=== PATIENT | female | born 1995 | race Caucasian/White ===

== ENCOUNTER → 2017-07-06 01:07 | Observation (INO) ==
[2017-07-05 22:31] LABS: Bilirubin,Urine Negative (Negative); Blood,Urine Negative (Negative); Clarity,Urine Turbid (Clear); Color,Urine Yellow (Yellow); Glucose,Urine (UA) Normal (Normal); Ketones,Urine Negative (Negative); Leukocyte Esterase,Urine Moderate (Negative); Nitrite,Urine Negative (Negative); Protein,Urine Negative (Neg-Trace); Specific Gravity,Urine 1.021 (1.010-1.025); Urobilinogen,Urine Normal (Normal)
[2017-07-05 22:39] LABS: Amorphous Sediment,Urine Moderate (Few); Bacteria,Urine Moderate per hpf (None-Few); Squamous Epithelial Cell,Urine Moderate per lpf (None-Few); WBC,Urine 0-3 per hpf (0-3)
--- NOTE | 2017-07-05 23:32 | OB/GYN History & Physical ---
Date of Encounter: 07/05/17 Time of Encounter: 23:25 Assessment and Plan (1) 27 weeks gestation of Current visit: Yes Status: Acute (2) labor Current visit: Yes Status: Acute Pt with uc's q 3-5 min on toco's, pt not really feeling most of them. SSE was negative for fern, pool or nitrazine. Qualifiers: labor trimester: second trimester Fetus number: single or unspecified fetus Qualified Code(s): O60.10X0 - labor with delivery, unspecified trimester, not applicable or unspecified History of Present Illness Chief complaint: contractions, pressure and possible LOF HPI: Ms. Keller is a 21 year old female female presents at 27w1d gestation with c/o 3 day h/o leaking small amt of fluid and now abd tightening about q 5 min and sharp stabbing pain in groind. + GFM. No VB. No UTI sx'x. She has been drinking alot of decaf. fluids. She had SI yest. Had ptl at about this far along with first preg. and had brethine x 1. She delivered 37 weeks last preg when induced for preeclampsia. Past Med Surg Social Fam HX - Past Medical History Source: patient, old records reviewed Medical history: GERD Psychiatric history: no psych history - Past Surgical History Surgical History: no surgical history - Social History Smoking Status: Never smoker Smokeless Tobacco Status: No Alcohol use: none Drug use: none - Family History Mother Adopted: No Family Member Ethnicity: Non- Living Status: Still Living Hx Family Cardiac Disorders: No Hx Family Respiratory Disorders: No Hx Family Cancer: No Hx Family GI Disorders: No Hx Family Endocrine Disorder: No Hx Family Neuromuscular Disorders: No Hx Family Neurologic Disorders: No Hx Family HEENT Disorders: No Hx Family Autoimmune Disorders: No Obstetrical History - Pregnancies : 2 Term: 1 Medications and Allergies Vits #90/Iron Fum/FA [ Formula Tablet] 1 each PO 07/05/17 [ History] 3 Allergy/AdvReac Type Severity Reaction Status Date / Time bee venom protein (honey bee) Allergy Swelling Verified 07/05/17 22:13 of Lip/Tongue/Throat Exam - Constitutional Constitutional: well developed, well nourished, no acute distress - HEENT HEENT: PERRL - Neck Neck exam: full ROM - Lungs Respiratory exam: CTAB - Cardiovascular Cardiovascular exam: RRR - Abdomen Abdomen: Present: gravid - Cervix Dilation: 0 Effacement: 20 Station: -2 - Uterus Uterus exam: Present: enlarged Results Abnormal lab results Urine Clarity Turbid (Clear) A 07/05/17 22:22 Ur Leukocyte Esterase Moderate (Negative) H 07/05/17 22:22 Ur Squamous Epith Cells Moderate per lpf (None-Few) H 07/05/17 22:22 Amorphous Sediment Moderate (Few) H 07/05/17 22:22 Urine Bacteria Moderate per hpf (None-Few) H 07/05/17 22:22 Ur Culture Indicated? YES (NO) A 07/05/17 22:22 All other labs normal. - VTE Reasons for not Prescribing Prophylaxis: Treatment not Indicated - Low risk for VTE
[2017-07-06 00:29] LABS: Candida DNA Not Detected (Not Detect); Gardnerella DNA Not Detected (Not Detect); Trichomonas DNA Not Detected (Not Detect)
[~2017-07-06 01:07] MED LIST: Terbutaline 1 MG/ML VIAL SQ ONE
== END | disposition home or self-care (01) ==
LOC: 1NENULAB
PROVIDERS: ADMIT Obstetrics & Gynecology; ATTEND Obstetrics & Gynecology

== ENCOUNTER → 2017-08-21 23:10 | Observation (INO) ==
[2017-08-21 22:18] LABS: Bilirubin,Urine Small (Negative); Blood,Urine Negative (Negative); Clarity,Urine Cloudy (Clear); Color,Urine Yellow (Yellow); Glucose,Urine (UA) Normal (Normal); Ketones,Urine Negative (Negative); Leukocyte Esterase,Urine Small (Negative); Nitrite,Urine Negative (Negative); PH,Urine 6.5 pH Units (5.0-8.0); Protein,Urine Trace mg/dL (Neg-Trace); Specific Gravity,Urine > 1.030 (1.010-1.025); Urobilinogen,Urine Normal (Normal)
[2017-08-21 22:20] LABS: Bacteria,Urine Many per hpf (None-Few); Squamous Epithelial Cell,Urine Many per lpf (None-Few)
[2017-08-21 22:25] LABS: Amphetamine Screen,Urine Negative ng/mL (Cutoff=1000); Barbiturate Screen,Urine Negative ng/mL (Cutoff=200); Benzodiazepines Screen,Urine Negative ng/mL (Cutoff=200); Cannabinoid Screen,Urine Negative ng/mL (Cutoff = 50); Cocaine Screen,Urine Negative ng/mL (Cutoff= 300); Opiate Screen,Urine Negative ng/mL (Cutoff=300); Phencyclidine Screen,Urine Negative ng/mL (Cutoff=25)
[2017-08-21 22:34] LABS: Hyaline Casts,Urine Few per lpf (None-Few)
[2017-08-21 22:35] LABS: RBC,Urine 0-3 per hpf (0-3)
--- NOTE | 2017-08-21 22:36 | Discharge Summary ---
Date of Encounter: 08/21/17 Time of Encounter: 22:36 - Discharge Diagnosis (1) 34 weeks gestation of Priority: Primary Status: Acute Comments: Admit for labor observation (2) Lower abdominal pain Priority: Secondary Status: Acute Comments: UA PO fluids encouraged (3) NST (non-stress test) reactive on surveillance Priority: Secondary Status: Acute Comments: baseline 135 bpm moderate variability +15x15 accels no decels noted. - Discharge Medications Home Medications: Vits #90/Iron Fum/FA [ Formula Tablet] 1 each PO DAILY [History] Allergies/Adverse Reactions: 3 Allergy/AdvReac Type Severity Reaction Status Date / Time bee venom protein (honey bee) Allergy Swelling Verified 08/21/17 22:19 of Lip/Tongue/Throat Data Procedures and tests throughout hospitalization: Laboratory Tests 08/21/17 08/21/17 22:00 22:00 Urine Color Yellow Urine Clarity Cloudy A Urine pH 6.5 Ur Specific [place] > 1.030 H Urine Protein Trace Urine Glucose (UA) Normal Urine Ketones Negative Urine Blood Negative Urine Nitrite Negative Urine Bilirubin Small H Urine Urobilinogen Normal Ur Leukocyte Esterase Small H Urine Opiates Screen Negative Ur Barbiturates Screen Negative Ur Phencyclidine Scrn Negative Ur Amphetamines Screen Negative U Benzodiazepines Scrn Negative Urine Cocaine Screen Negative U Marijuana (THC) Screen Negative Labs on day of discharge: Labs from last 24 hours 08/21/17 08/21/17 22:00 22:00 Urine Color Yellow Urine Clarity Cloudy A Urine pH 6.5 Ur Specific [place] > 1.030 H Urine Protein Trace Urine Glucose (UA) Normal Urine Ketones Negative Urine Blood Negative Urine Nitrite Negative Urine Bilirubin Small H Urine Urobilinogen Normal Ur Leukocyte Esterase Small H Urine Opiates Screen Negative Ur Barbiturates Screen Negative Ur Phencyclidine Scrn Negative Ur Amphetamines Screen Negative U Benzodiazepines Scrn Negative Urine Cocaine Screen Negative U Marijuana (THC) Screen Negative Date of admission: 08/21/17 21:37 Primary care physician: PCP NONE Discharging clinician: Bettie Gaytan Anticipated date of discharge: 08/21/17 - Patient Status Disposition: Home, Self-Care Condition: Good Functional capacity at discharge: independent ambulation - Discharge Instructions Follow Up With: NONE,PCP [Primary Care Provider] - Nanette Staton DO [Partnered Physician] - - Diet and Activity Activity: increase activity as tolerated Diet: regular diet Hospital Course [employer] Hospital course: Patient is 22 y/o at 34 weeks gestation presents to labor and delivery with complaints of low abdominal pain and cramping following intercourse. Patient denies dysuria, VB or LOF. SVE: Closed/Thick/High. Time Attestation: Total time spent providing and/or coordinating discharge services: Time Spent: Less than 30 minutes Exam - Constitutional General appearance IM: A&O X 3, pleasant, answers questions appropriately - Respiratory Respiratory exam: Present: CTAB - Cardiovascular Cardiovascular exam IM: Present: RRR, +S1, +S2 - GI/Abdominal GI/Abdominal exam IM: normal bowel sounds - Extremities Exam Extremities exam IM: Present: full ROM, normal capillary refill, normal inspection - Neurological Exam Neurological exam: alert, oriented X3, reflexes normal - Other Additional findings: FHR 145 bpm moderate variability +15x15 accels no decels noted. CAt. 1 tracing. Occasional uterine irritability noted. - VTE Reasons for not Prescribing Prophylaxis: Treatment not Indicated - Low risk for VTE
[~2017-08-21 23:10] MED LIST changes: -Terbutaline 1 MG/ML VIAL SQ ONE; +hydrOXYzine pamoate 25 MG CAPSULE PO STA
== END | disposition home or self-care (01) ==
LOC: 1NENULAB
PROVIDERS: ADMIT Obstetrics & Gynecology; ATTEND Obstetrics & Gynecology

== ENCOUNTER 2017-09-20 18:29 | Inpatient (IN) ==
[2017-09-20 17:29] LABS: Amphetamine Screen,Urine Negative ng/mL (Cutoff=1000); Barbiturate Screen,Urine Negative ng/mL (Cutoff=200); Benzodiazepines Screen,Urine Negative ng/mL (Cutoff=200); Cannabinoid Screen,Urine Negative ng/mL (Cutoff = 50); Cocaine Screen,Urine Negative ng/mL (Cutoff= 300); Opiate Screen,Urine Negative ng/mL (Cutoff=300); Phencyclidine Screen,Urine Negative ng/mL (Cutoff=25)
--- NOTE | 2017-09-20 18:17 | OB/GYN History & Physical ---
Date of Encounter: 09/20/17 Time of Encounter: 18:15 Assessment and Plan (1) 38 weeks gestation of Current visit: Yes Status: Acute (2) Spontaneous onset of labor Current visit: Yes Status: Acute EFM with expectant management. Epidural already requested. History of Present Illness Chief complaint: contractions started at 1pm HPI: Ms. Keller is a 22 year old female at 38 1/7 weeks presents to labor and delivery with complaint of intense contractions that began at 1 pm. She denies any leaking fluid or vaginal bleeding.She reports good movement. complicated by short interval between pregnancies. Past Med Surg Social Fam HX - Past Medical History Source: patient Medical history: no medical history, GERD Psychiatric history: no psych history - Past Surgical History Surgical History: no surgical history - Social History Smoking Status: Never smoker Smokeless Tobacco Status: No Alcohol use: none Drug use: none - Family History Mother Adopted: No Family Member Ethnicity: Non- Living Status: Still Living Hx Family Cardiac Disorders: Yes (hypertension) Hx Family Respiratory Disorders: No Hx Family Cancer: No Hx Family GI Disorders: No Hx Family Endocrine Disorder: Yes (DM II) Hx Family Neuromuscular Disorders: No Hx Family Neurologic Disorders: No Hx Family HEENT Disorders: No Hx Family Autoimmune Disorders: No Obstetrical History - Pregnancies : 2 Para: 1 Livin Medications and Allergies Vits #90/Iron Fum/FA [ Formula Tablet] 1 each PO DAILY [History] 3 Allergy/AdvReac Type Severity Reaction Status Date / Time bee venom protein (honey bee) Allergy Swelling Verified 08/21/17 22:19 of Lip/Tongue/Throat Review of System OB All systems PM: reviewed and no additional remarkable complaints except as stated Exam - Constitutional Constitutional: well developed, well nourished, average body habitus (very uncomfortable with contractions) - HEENT HEENT: EOMI - Lungs Respiratory exam: CTAB - Cardiovascular Cardiovascular exam: RRR - Abdomen Abdomen: Present: bowel sounds normal, gravid, non tender - Cervix Dilation: 6 Effacement: 100 Station: -3 Results All other labs normal. - VTE Reasons for not Prescribing Prophylaxis: Treatment not Indicated - Low risk for VTE
[2017-09-20 18:18] LABS: Basophils % 0.2 %; Eosinophils % 0.1 %; Hemoglobin 10.1 g/dL (11.5-15.4); Immature Granulocytes % 0.9 % (0-4); Lymphocytes # 1.6 K/mcL (0.6-4.6); Lymphocytes % 9.2 %; Mean Corpuscular HGB Conc 30.6 g/dL (31.6-35.5); Mean Platelet Volume 10.7 fL (9.4-12.4); Monocytes # 1.1 K/mcL (0.0-1.3); Monocytes % 6.6 %; Neutrophils # 14.4 K/mcL (1.6-8.9); Platelet Count 255 K/mcL (140-400); Red Cell Distribution Width 15.3 % (11.5-14.5)
[~2017-09-20 18:29] MED LIST changes: +*HR* Nalbuphine 20 MG/ML AMPUL IVP PRN; +Epidural Premix (fent/bupiv) 110 ML EP ONE; +Famotidine 20 MG/2 ML VIAL IVP PRN; +Metoclopramide 10 MG/2 ML VIAL IVP PRN; +Naloxone 0.4 MG/ML INJ IVP PRN; +Ringers Solution, Lactated 1,000 ML IVC SCH; +Ringers Solution, Lactated 1,000 ML ONE; -hydrOXYzine pamoate 25 MG CAPSULE PO STA
--- NOTE | 2017-09-20 18:47 | Anesthesia Evaluation PreOp ---
Date of Encounter: 09/20/17 Time of Encounter: 18:46 - Past History Planned Operation: MEREDITH Cardiac History: Denies any Significant Hx Pulmonary History: Denies Any Significant HX RUBBER COMPOUNDER History: Denies Any Significant HX Other Medical History: Denies Any Significant HX Anesthesia History: No Prior Anesthetic Complications Alcohol Use: none Drug use: none Medications and Allergies Vits #90/Iron Fum/FA [ Formula Tablet] 1 each PO DAILY [History] 3 Allergy/AdvReac Type Severity Reaction Status Date / Time bee venom protein (honey bee) Allergy Swelling Verified 08/21/17 22:19 of Lip/Tongue/Throat - Meds/Allergy Pre-op Review Medications Reviewed: Yes Allergies Reviewed: Yes Beta Blockers on Current Med List: No Anesthesia Results - Labs 09/20/17 18:11 Anesthesia Exam Height: 1.68m Weight: 72.4kg NPO (# of Hours): 6 Pain Scale: 9 Pain Scale Used: Numeric (1 - 10) - HEENT Pupil (Motor): Pupils equal Mallampati: II Teeth: Normal Oral Opening: Greater than 3 - RUBBER COMPOUNDER LOC: Oriented RUBBER COMPOUNDER Motor: Normal RUE, Normal LUE, Normal RLE, Normal LLE, Normal Face RUBBER COMPOUNDER Sensory: Normal: RUE, LUE, RLE, LLE, Face - Cardiac Rhythm: Regular Murmur: None JVD: No Carotid Bruit: No - Pulmonary Breath Sounds: bilateral Clear Respiratory Effort: Symmetrical Anesthesia Assess/Plan ASA Score: 2 Modified [place] Scale for Level of Consciousness: Cooperative, oriented, and tranquil Anesthetic Plan: General (plan b), Regional (plan a) Autologous Blood: Yes Monitoring Plan: Standard Monitors
--- NOTE | 2017-09-20 18:50 | Anesthesia Procedures ---
Date of Encounter: 09/20/17 Time of Encounter: 18:47 Procedures: Anesthesia - Epidural/Spinal Patient ID/Chart reviewed: Yes Patient examined: Yes OB Eval: Gestational age: 38.1 OB Eval: : 2 OB Eval: Hx Para: 1 OB Eval: Dilated at (cm): 6 OB Eval: Contractions: Non-stressed pattern Consent Obtained: Yes Supplemental Oxygen: None/Room Air Site Prep: Aseptic Technique, Sterile prep and drape, Povidone-Iodine 1% Patient position: upright Local Anesthetic: Lidocaine 1% Amount of Local Anesthetic used: 3 Touhy Needle Gauge: 18 Touhy Needle Depth (cm): 7 Catheter Depth at Skin (cm): 17 Test Dose (1.5% Lido + Epi): Volume given (mls): 5 Test Dose Result: Negative Loading Dose: Other: 10mls of epidural pharm bag premix solution Loading Dose Administered: Thru Catheter Infusion Med: 0.125% Bupivacaine w/ 2 mcg/ml Fentanyl Infusion Rate (mls/hr): 14 ([id number] pcea) Catheter Secured in Place: Tegaderm, Tape Interspace Used: L4-L5 Loss of Resistance ([place]): Yes Blood: No CSF: No Paresthesia: No Procedure: pt tolerated procedure well. no complications. vss. fhr stable. 134/58 hr 118 fhr 135
[2017-09-20] MEDS ORDERED: Mag Hydrox/Al Hydrox/Simeth 30 ML UDC PO ONE (19:31)
--- NOTE | 2017-09-20 19:32 | OB Labor Progress Note ---
Date of Encounter: 09/20/17 Time of Encounter: 19:29 Labor Progress Note - Subjective Subjective: Patient comfortable after epidural - Cervix Cervix: 9/100/-1 - Heart Tones Heart Tones: 150 baseline category 2 - [place]: q 1.5 minutes - Interventions Interventions: AROM with clear fluid - Plan Plan: Patient repositioned. Continue with EFM and expectant management.
[2017-09-20] MEDS ORDERED: Oxytocin 20 units/ LR 1000 mL 20 UNIT/1,000 ML BAG IVC ONE ×2 (20:14→22:11)
--- NOTE | 2017-09-20 20:22 | OB/GYN Procedure Note ---
Delivery - Delivery Date: 09/20/17 Provider: Nanette Staton Intrapartum events: none Delivery induction: none Delivery augmentation: rupture of membranes Delivery monitor: external FHT, external uterine Anesthesia: epidural Estimated Blood Loss: 100 - (s) Infant A Delivery Date: 09/20/17 Delivery Time: 20:10 Presentation: vertex Position: TANA Route of delivery: Gender: Female Viability: Viable Pounds: 6 Ounces: 5 Weight Gram: 2.865 kg Shoulder Dystocia: not encountered Specimens collected: cord blood Placenta: spontaneous Cord: 3 umbilical vessels (short cord) - Repair Episiotomy: none Laceration Description: None - Complications Delivery complications: none Delivery comments: Called to room with patient complete and +2 station. Under maternal effort she delivered a viable female weighing 6 lbs. 5 oz. and Apgars pending at time of dictation over intact perineum. Following delivery of the head there was no nuchal cord encountered. Infant delivered with maternal effort. No shoulder dystocia was encountered. Short umbilical cord is noted and is held at perineum and cord is clamped and cut. Infant was placed on mom's abdomen. Cord blood was collected. Placenta delivered spontaneously, complete, and intact with a three-vessel cord. There were no vaginal, labial, or cervical lacerations on exam. Mother and infant are recovering in the LDR in stable condition. - Disposition Mom disposition: stable in LDR [place] disposition: stable in LDR
[2017-09-20] MEDS ORDERED: Oxytocin 20 units/ LR 1000 mL 20 UNIT/1,000 ML BAG IVC SCH (22:11)
[2017-09-20] MEDS ORDERED: Acetaminophen 325 MG TABLET PO PRN (22:11)
[2017-09-20] MEDS ORDERED: Rho Immune Globulin 1,500 UNIT SYRINGE IM PRN (22:11)
[2017-09-20] MEDS ORDERED: Measles/Mumps/Rubella Vacc 0.5 ML VIAL SQ PRN (22:11)
[2017-09-20] MEDS: Ibuprofen 600 MG TABLET PO PRN (23:48)
[2017-09-21] MEDS: Ibuprofen 600 MG TABLET PO PRN ×2 (07:45→19:36)
[2017-09-21] MEDS: Prenatal Vit/FA 1 EACH TABLET PO SCH (07:45)
--- NOTE | 2017-09-21 10:09 | OB/GYN Progress Note ---
Date of Encounter: 09/21/17 Time of Encounter: 10:08 Subjective - Subjective Patient reports: appetite normal, voiding normally, pain well controlled : doing well Objective - Latest Vital Signs Latest vital signs: Vital Signs Temp Pulse Resp BP Pulse Ox 09/21/17 07:30 98.3 F 106 16 109/70 09/21/17 04:37 98.1 F 101 16 123/76 99 09/21/17 01:40 98.7 F 110 20 104/54 97 09/21/17 00:35 100 F H 111 20 132/83 97 09/20/17 23:40 100 F H 111 20 132/83 97 09/20/17 22:40 98.2 F 97 16 141/89 98 Intake and Output 09/20/17 09/21/17 09/21/17 23:59 07:59 15:59 Intake Total 1240 / 1240 240 / 240 Output Total 450 / 450 1000 / 1000 Balance -450 / -450 240 / 240 240 / 240 Intake: Oral 240 / 240 240 / 240 Other 1000 / 1000 Output: Urine 450 / 450 1000 / 1000 Other: Meal Breakfast Percent of Meal Consumed 50% Weight 68.9 kg - Exam Lungs: bilateral: normal Chest: Normal S1, Normal S2 Extremities: Present: normal Abdomen: Present: normal appearance, soft, gravid Uterus: Present: normal, firm Uterus Position: 2 Fingers Below Umbilicus - Labs Labs: Laboratory Results - last 24 hr 09/20/17 09/20/17 09/20/17 16:58 18:11 20:25 WBC 17.4 H RBC 4.40 Hgb 10.1 L Hct 33.0 L MCV 75.0 L MCH 23.0 L MCHC 30.6 L RDW 15.3 H Plt Count 255 MPV 10.7 Immature Gran % 0.9 Seg Neutrophils % 83.0 Lymphocytes % 9.2 Monocytes % 6.6 Eosinophils % 0.1 Basophils % 0.2 Neutrophils # 14.4 H Lymphocytes # 1.6 Monocytes # 1.1 Eosinophils # 0.0 Basophils # 0.0 Urine Opiates Screen Negative Ur Barbiturates Screen Negative Ur Phencyclidine Scrn Negative Ur Amphetamines Screen Negative U Benzodiazepines Scrn Negative Urine Cocaine Screen Negative U Marijuana (THC) Screen Negative Screen NEGATIVE Baby's Blood Type A RH POSITIVE Mother's Blood Type A RH NEGATIVE Rhogam Indicated YES Rhogam Req for Mother 1
--- NOTE | 2017-09-22 07:47 | Discharge Summary ---
Date of Encounter: 09/22/17 Time of Encounter: 07:44 - Discharge Diagnosis (1) Vaginal delivery Priority: Primary Status: Acute Comments: Patient doing well, denies complaints and pain. Continue routine care Discharge home today - Discharge Medications Prescriptions: Ibuprofen [Motrin] 600 mg PO Q6HR PRN #60 tablet PRN Reason: Cramping Home Medications: Vits #90/Iron Fum/FA [ Formula Tablet] 1 each PO DAILY [History] Ibuprofen [Motrin] 600 mg PO Q6HR PRN #60 tablet 09/22/17 [Rx] Allergies/Adverse Reactions: 3 Allergy/AdvReac Type Severity Reaction Status Date / Time bee venom protein (honey bee) Allergy Swelling Verified 08/21/17 22:19 of Lip/Tongue/Throat Data Procedures and tests throughout hospitalization: Laboratory Tests 09/20/17 09/20/17 09/20/17 16:58 18:11 20:25 WBC 17.4 H RBC 4.40 Hgb 10.1 L Hct 33.0 L MCV 75.0 L MCH 23.0 L MCHC 30.6 L RDW 15.3 H Plt Count 255 MPV 10.7 Immature Gran % 0.9 Seg Neutrophils % 83.0 Lymphocytes % 9.2 Monocytes % 6.6 Eosinophils % 0.1 Basophils % 0.2 Neutrophils # 14.4 H Lymphocytes # 1.6 Monocytes # 1.1 Eosinophils # 0.0 Basophils # 0.0 Urine Opiates Screen Negative Ur Barbiturates Screen Negative Ur Phencyclidine Scrn Negative Ur Amphetamines Screen Negative U Benzodiazepines Scrn Negative Urine Cocaine Screen Negative U Marijuana (THC) Screen Negative Screen NEGATIVE Baby's Blood Type A RH POSITIVE Mother's Blood Type A RH NEGATIVE Rhogam Indicated YES Rhogam Req for Mother 1 Labs on day of discharge: Labs from last 24 hours 09/20/17 20:25 Screen NEGATIVE Rhogam Req for Mother 1 Date of admission: 09/20/17 18:30 Consults: 09/20/17 22:11 Consult to Pharmacist'S Aide [CONS] Routine Comment: Vaginal delivery, consult needed Consult to Apiarist [CONS] Routine Reason for SW Consult: short interval Discharging clinician: Bettie Gaytan Anticipated date of discharge: 09/22/17 - Patient Status Disposition: Home, Self-Care Condition: Good Functional capacity at discharge: independent ambulation - Discharge Instructions Follow Up With: Nanette Staton DO [Partnered Physician] - - Diet and Activity Activity: resume usual activities as tolerated Diet: regular diet Hospital Course Reason for admission: active labor Delivery: Episiotomy: none Laceration: none Other procedures: none complications: none Discharge diagnosis: IUP at term delivered baby: female (bottle feeding) Time Attestation: Total time spent providing and/or coordinating discharge services: Time Spent: Less than 30 minutes Exam - Constitutional Vitals: Temp Pulse Resp BP Pulse Ox 98.6 F 104 16 122/76 99 09/21/17 20:00 09/21/17 20:00 09/21/17 20:00 09/21/17 20:00 09/21/17 20:00 General appearance IM: cooperative, A&O X 3, pleasant, no acute distress - Respiratory Respiratory exam: Present: CTAB - Cardiovascular Cardiovascular exam IM: Present: RRR, +S1, +S2 - GI/Abdominal GI/Abdominal exam IM: normal bowel sounds - Rectal Rectal exam: deferred - Uterine Tone: Firm Uterus Position: 1 Finger Below Umbilicus - Extremities Exam Extremities exam IM: Present: full ROM, normal capillary refill, normal inspection, warm - Neurological Exam Neurological exam: alert, oriented X3
[2017-09-22 08:01] VITALS: BP 105/70
[2017-09-22] MEDS: Prenatal Vit/FA 1 EACH TABLET PO SCH (08:48)
[2017-09-22] MEDS: Ibuprofen 600 MG TABLET PO PRN (08:48)
== END 2017-09-22 12:00 | disposition home or self-care (01) | DRG 560 ==
LOC: 1NENULAB → 1NENUOBS 22:10
PROVIDERS: ADMIT Obstetrics & Gynecology; ATTEND Obstetrics & Gynecology

== ENCOUNTER 2020-10-18 23:10 | Observation (INO) ==
[2020-10-18 20:47] LABS: Bilirubin,Urine Negative (Negative); Blood,Urine Negative (Negative); Clarity,Urine Clear (Clear); Color,Urine Yellow (Yellow); Glucose,Urine (UA) Normal (Normal); Ketones,Urine Negative (Negative); Leukocyte Esterase,Urine Negative (Negative); Nitrite,Urine Negative (Negative); PH,Urine 7.5 pH Units (5.0-8.0); Protein,Urine Trace mg/dL (Neg-Trace); Specific Gravity,Urine 1.028 (1.010-1.025)
[2020-10-18 21:32] LABS: Candida DNA Not Detected (Not Detect); Gardnerella DNA Not Detected (Not Detect); Trichomonas DNA Not Detected (Not Detect)
[2020-10-18 22:00] LABS: Amphetamine Screen,Urine Negative ng/mL (Cutoff=1000); Barbiturate Screen,Urine Negative ng/mL (Cutoff=200); Benzodiazepines Screen,Urine Negative ng/mL (Cutoff=200); Cannabinoid Screen,Urine Negative ng/mL (Cutoff = 50); Cocaine Screen,Urine Negative ng/mL (Cutoff= 300); Opiate Screen,Urine Negative ng/mL (Cutoff=300); Phencyclidine Screen,Urine Negative ng/mL (Cutoff=25)
[~2020-10-18 23:10] MED LIST changes: -*HR* Nalbuphine 20 MG/ML AMPUL IVP PRN; -Epidural Premix (fent/bupiv) 110 ML EP ONE; -Famotidine 20 MG/2 ML VIAL IVP PRN; +Lidocaine -MPF 2% 5 ML VIAL ONE; -Metoclopramide 10 MG/2 ML VIAL IVP PRN; -Naloxone 0.4 MG/ML INJ IVP PRN; -Ringers Solution, Lactated 1,000 ML ONE
[2020-10-18 23:41] LABS: Alanine Aminotransferase 109 Units/L (7-52); Albumin 3.7 g/dL (3.5-5.7); Alkaline Phosphatase 82 Units/L (34-104); Aspartate Amino Transferase 109 Units/L (13-39); BUN/Creatinine Ratio 13 (6-26); Bilirubin,Total 0.4 mg/dL (0.3-1.0); Blood Urea Nitrogen 6 mg/dL (6-20); Calcium 8.7 mg/dL (8.6-10.3); Carbon Dioxide 21 mEq/L (23-29); Chloride 103 mEq/L (98-107); Globulin 3.6 g/dL (2.4-3.5); Glucose 78 mg/dL (70-105); Osmolality,Calculated 270 (280-300); Potassium 3.4 mEq/L (3.5-5.1); Sodium 132 mEq/L (136-145); Total Protein 7.3 g/dL (6.4-8.9); eGFR For African Americans > 60 (> 60); eGFR For Non-African Americans > 60 (> 60)
[2020-10-19 03:18] VITALS: BP 105/61
[2020-10-19] MEDS ORDERED: *HR* Heparin 5,000 UNIT/ML VIAL SQ SCH (06:00)
== END 2020-10-19 06:40 | disposition left against medical advice (07) ==
LOC: 1NENULAB → 3BNU 23:10
PROVIDERS: ADMIT Obstetrics & Gynecology; ATTEND Obstetrics & Gynecology